=== PATIENT | male | born 1945 | race Two or more races ===

== ENCOUNTER 2018-05-13 19:30 | Inpatient (IN) | payer MEDICARE, OTHER ==
[~2018-05-13] VITALS: Ht 167.6 cm; Wt 71.7 kg
[2018-05-13] MEDS ORDERED: HYDROCODONE/APAP 5/325MG 1 EACH TABLET PO PRN (20:00)
[2018-05-13] MEDS ORDERED: MAGNESIUM HYDROXIDE 30 ML UDC PO PRN (20:00)
[2018-05-13] MEDS ORDERED: MORPHINE SULFATE INJ 2 MG/ML DISP.SYRIN IV PRN (20:00)
[2018-05-13] MEDS ORDERED: Z GUARD REMEDY 2 OZ OINT TP PRN (20:00)
[2018-05-13] MEDS ORDERED: MAG HYDROX/AL HYDROX/SIMETH 30 ML UDC PO PRN (20:00)
[2018-05-13] MEDS ORDERED: ZOLPIDEM TARTRATE 5 MG TABLET PO PRN (20:00)
[2018-05-13] MEDS ORDERED: ACETAMINOPHEN 325 MG TABLET PO PRN (20:00)
[2018-05-13 21:00] VITALS: BP 136/87
--- NOTE | 2018-05-13 21:15 | NUR ---
MS/SOUND MIXER ADMITTING NOTE Patient was a direct admission from [facility] for acute cholecystitis. Patient arrived to unit in stable condition, vital signs WNL, and initial physical assessment unremarkable except for right sided abdominal pain as expected. Patient was made comfortable in bed and oriented to the room and unit. Medical history was obtained from patient with his daughter assisting with translation. Patient is AAOx4, breathing on RA with no SOB, and no signs of acute distress. Patient was connected to IV fluids D5 1/2NS at 75ml/hr through the left AC. Patient was seen ambulating in the room and is steady on his feet. Bed is in the low/locked position, two side rails up, and call trujillo within reach. New orders have been acknowledged and patient needs currently met. Will continue to monitor.
[2018-05-13] MEDS: IV D5/0.45 NACL 1,000 ML IV PRN (21:58)
[2018-05-13 22:00] VITALS: BP 136/87
[2018-05-13 22:13] LABS: BASOPHILS % (AUTO) 0.1 % (0.0-2.0); HEMATOCRIT 48 % (39-51); HEMOGLOBIN 16.1 g/dL (13.5-17.5); LYMPHOCYTES % (AUTO) 5.6 % (20.0-44.0); MEAN CORPUSCULAR HGB CONC 34 g/dl (31.0-36.0); MEAN CORPUSCULAR VOLUME 89 fL (80-96); MONOCYTES # (AUTO) 1.7 /CMM (0.1-1.30); MONOCYTES % (AUTO) 9.6 % (2.0-12.0); NEUTROPHILS # (AUTO) 15.4 /CMM (1.8-8.9); NEUTROPHILS % (AUTO) 84.7 % (43.0-81.0); PLATELET COUNT (AUTO) 222 /CMM (150-450); RDW COEFFICIENT OF VARIATION 13.9 (11.5-15.0); RED BLOOD CELL COUNT(AUTO) 5.36 MIL/uL (4.5-6.0); WHITE BLOOD COUNT (AUTO) 18.2 K/uL (4.3-11.0)
[2018-05-13 22:27] LABS: ALBUMIN 3.4 g/dL (3.4-5.0); CALCIUM, SERUM 8.3 mg/dL (8.5-10.1); CREATININE 1.1 mg/dL (0.6-1.3); MAGNESIUM 1.6 mg/dL (1.8-2.4); POTASSIUM 3.8 mmol/L (3.5-5.1); TOTAL PROTEIN, SERUM 7.7 g/dL (6.4-8.2)
[2018-05-13 22:42] LABS: LYMPHOCYTES % (MANUAL) 1 % (16-48); MONOCYTES % (MANUAL) 11 % (0-11.0); NEUTROPHILS % (MANUAL) 88 (42-76)
[2018-05-14] VITALS: BP 139/83
[2018-05-14] MEDS ORDERED: PIPERACILLIN /TAZOBACTAM 2.25 G VIAL IV ONE ×2 (00:40→06:01)
[2018-05-14] MEDS: PIPERACILLIN /TAZOBACTAM 4.5 G in IV D5W 50 ML IV SCH ×5 (00:44→23:35)
[2018-05-14] MEDS: Magnesium 1GM/D5W 100ML PREMIX 100 ML IV SCH ×2 (02:26→03:23)
[2018-05-14 04:00] VITALS: BP 118/70
[2018-05-14 07:00] LABS: BASOPHILS % (AUTO) 0.1 % (0.0-2.0); HEMATOCRIT 49 % (39-51); HEMOGLOBIN 16.3 g/dL (13.5-17.5); LYMPHOCYTES # (AUTO) 1.1 /CMM (0.8-4.8); LYMPHOCYTES % (AUTO) 5.7 % (20.0-44.0); MEAN CORPUSCULAR HGB CONC 34 g/dl (31.0-36.0); MEAN CORPUSCULAR VOLUME 91 fL (80-96); MONOCYTES # (AUTO) 1.7 /CMM (0.1-1.30); MONOCYTES % (AUTO) 8.9 % (2.0-12.0); NEUTROPHILS # (AUTO) 16.5 /CMM (1.8-8.9); NEUTROPHILS % (AUTO) 85.3 % (43.0-81.0); PLATELET COUNT (AUTO) 231 /CMM (150-450); RDW COEFFICIENT OF VARIATION 13.9 (11.5-15.0); RED BLOOD CELL COUNT(AUTO) 5.35 MIL/uL (4.5-6.0); WHITE BLOOD COUNT (AUTO) 19.3 K/uL (4.3-11.0)
[2018-05-14 07:19] LABS: CALCIUM, SERUM 8.7 mg/dL (8.5-10.1); CREATININE 1.3 mg/dL (0.6-1.3); MAGNESIUM 2.7 mg/dL (1.8-2.4); PHOSPHORUS 2.9 mg/dL (2.5-4.9); POTASSIUM 3.7 mmol/L (3.5-5.1)
--- NOTE | 2018-05-14 07:20 | NUR ---
GAS UTILITY WORKER OPENING NOTES. PT RECEIVED A&0X3, TOLERATING ROOM AIR AND REPORTING SIGNIFICANT PAIN TO L R ABDOMEN. ABDOMEN IS VERY TENDER TO LITE TOUCH AND DISTENDED. PT DECLINE PRN ANALGESIA AT THIS TIME. PT WITH IVC A L AC g#20 INTACT AND OPERATIONAL. PT BED IN LOWEST LOCKED POSITION WITH HANDRAILSX2 AND CALL ERICKSON WITHIN REACH.
--- NOTE | 2018-05-14 07:46 | NUR ---
MS/TELE CLOSING NOTE Patient was seen in bed AAOx3, breathing on RA with no SOB, and no signs of acute distress. D5 1/2 NS is running at 75ml/hr through the left AC. Bed is in the low/locked position, two side rails up, call trujillo within reach. Patient remains in stable condition. Patient care has been endorsed to day shift RN.
[2018-05-14 08:00] VITALS: BP 130/79
[2018-05-14] MEDS ORDERED: GABA-532 PO (08:04)
[2018-05-14] MEDS ORDERED: ASPI-1169 PO (08:04)
[2018-05-14] MEDS ORDERED: TRAM50TA2 PO (08:04)
[2018-05-14] MEDS ORDERED: COLC0.6T67 PO (08:04)
[2018-05-14] MEDS ORDERED: AMLO5TAB7 PO (08:04)
[2018-05-14] MEDS ORDERED: ATOR20TA PO (08:04)
[2018-05-14] MEDS ORDERED: IOHEXOL-300 100 ML VIAL IV ONE (08:06)
[2018-05-14] MEDS ORDERED: IV NS 0.9% 500 ML IV ONE (08:07)
[2018-05-14] MEDS ORDERED: CT SWABBABLE VALVE TRANS SET 1 EA INFUS.SET MC ONE (08:07)
[2018-05-14] MEDS: ONDANSETRON HCL/PF 4 MG/2 ML VIAL IVP PRN ×2 (09:59→17:08)
[2018-05-14] MEDS: MORPHINE SULFATE INJ 4 MG/ML DISP.SYRIN IV PRN ×2 (10:12→17:07)
--- NOTE | 2018-05-14 10:40 | NUR ---
MSRN NOTES. PT CT ABDO RESULT IN REPORTED IN PERSON TO MD BARRIOS. Carina LUO ALSO NOTIFIED.
[2018-05-14] MEDS ORDERED: hydrALAZINE HCL 25 MG TABLET PO PRN (11:00)
[2018-05-14 16:00] VITALS: BP 129/76
[2018-05-14] MEDS: GABAPENTIN 100 MG CAPSULE PO SCH (16:55)
[2018-05-14] MEDS: IV D5/0.45 NACL 1,000 ML IV PRN (17:07)
[2018-05-14 17:13] VITALS: BP 130/76
--- NOTE | 2018-05-14 19:05 | NUR ---
RN INITIAL NOTES: RECEIVED PATIENT IN BED, WITH FAMILY AT BEDSIDE. ALERT, ORIENTED X3, TOLERATING ROOM AIR WITHOUT DISTRESS. NO REPORTS OF PAIN OR DISCOMFORT OF THIS TIME. PATIENT WITH PERIPHERAL IV INFUSING AT 75ML/HR. PATIENT'S BED IN LOWEST LOCKED POSITION WITH HANDRAILSX2 AND CALL ERICKSON WITHIN REACH. PATIENT STABLE ENDORSED BY THE MORNING SHIFT RN. WILL CONTINUE TO MONITOR.
--- NOTE | 2018-05-14 19:27 | NUR ---
MSRN CLOSING NOTES. PT REMAINS A&0X3 TOLERATING ROOM AIR WITHOUT DISTRESS AND REPORTS PAIN MANAGEMENT ADEQUATE AT THIS TIME. PT WITH IVC INTACT AND OPERATIONAL. FAMILY AT BEDSIDE. PT BED IN LOWEST LOCKED POSITION WITH HANDRAILSX2 AND CALL ERICKSON WHTIN REACH. ALL DAY NURSE DUTIES ATTENDED TO AND PT IS WITHOUT CONCERN OR COMPLAINT. ENDORSED TO NIGHT NURSE AT BEDSIDE FOR AYESHA.
[2018-05-14 20:00] VITALS: BP 124/70
[2018-05-15] MEDS: PIPERACILLIN /TAZOBACTAM 4.5 G in IV D5W 50 ML IV SCH ×3 (05:29→17:42)
[2018-05-15] MEDS: IV D5/0.45 NACL 1,000 ML IV PRN (06:11)
--- NOTE | 2018-05-15 06:51 | NUR ---
MS RN CLOSING NOTES: PATIENT IN BED, AWAKE, REMAINS ALERT ORIENTED X 4. TOLERATING ROOM AIR WITHOUT DISTRESS. NO REPORTS OF PAIN OR DISCOMFORT THROUGHOUT THE SHIFT. PATIENT WITH IVC INTACT, INFUSING AT 75ML/HR. CALL DRE RAMOS. BED IN LOWEST LOCKED POSITION WITH HANDRAILSX2. ALL NEEDS ATTENDED TO AND PT IS WITHOUT CONCERN OR COMPLAINT. WILL ENDORSE TO AM SHIFT NURSE FOR AYESHA.
[2018-05-15 07:20] LABS: BASOPHILS % (AUTO) 0.2 % (0.0-2.0); EOSINOPHILS % (AUTO) 0.6 % (0.0-6.0); HEMATOCRIT 44 % (39-51); HEMOGLOBIN 14.5 g/dL (13.5-17.5); LYMPHOCYTES # (AUTO) 0.9 /CMM (0.8-4.8); LYMPHOCYTES % (AUTO) 6.6 % (20.0-44.0); MEAN CORPUSCULAR HGB CONC 33 g/dl (31.0-36.0); MEAN CORPUSCULAR VOLUME 90 fL (80-96); MONOCYTES # (AUTO) 1.4 /CMM (0.1-1.30); MONOCYTES % (AUTO) 10.1 % (2.0-12.0); NEUTROPHILS # (AUTO) 11.6 /CMM (1.8-8.9); NEUTROPHILS % (AUTO) 82.5 % (43.0-81.0); PLATELET COUNT (AUTO) 202 /CMM (150-450); RDW COEFFICIENT OF VARIATION 14.3 (11.5-15.0); RED BLOOD CELL COUNT(AUTO) 4.83 MIL/uL (4.5-6.0); WHITE BLOOD COUNT (AUTO) 14.1 K/uL (4.3-11.0)
[2018-05-15 07:24] LABS: CALCIUM, SERUM 8.3 mg/dL (8.5-10.1); CREATININE 1.2 mg/dL (0.6-1.3); POTASSIUM 3.9 mmol/L (3.5-5.1)
[2018-05-15 07:29] LABS: ALBUMIN 2.5 g/dL (3.4-5.0); BILIRUBIN,DIRECT 0.4 mg/dL (0.0-0.2); BILIRUBIN,TOTAL 1.6 mg/dL (0.2-1.0); MAGNESIUM 2.3 mg/dL (1.8-2.4); PHOSPHORUS 2.4 mg/dL (2.5-4.9); TOTAL PROTEIN, SERUM 6.8 g/dL (6.4-8.2)
--- NOTE | 2018-05-15 07:35 | NUR ---
MS RN OPENING NOTES: PATIENT IN BED, AWAKE, REMAINS ALERT ORIENTED X 4. TOLERATING ROOM AIR WITHOUT DISTRESS. NO REPORTS OF PAIN OR DISCOMFORT THROUGHOUT THE SHIFT. PATIENT WITH IVC INTACT, INFUSING AT 75ML/HR. CALL LIGHT WHTIN REACH. BED IN LOWEST LOCKED POSITION WITH HANDRAILSX2. ALL NEEDS ATTENDED TO AND PT IS WITHOUT CONCERN OR COMPLAINT. WILL CONTINUE TO MONITOR
[2018-05-15 08:00] VITALS: BP 127/77
[2018-05-15] MEDS: ASPIRIN 81 MG TAB.CHEW PO SCH (08:48)
[2018-05-15] MEDS: TRAMADOL HCL 50 MG TABLET PO PRN ×2 (08:48→21:42)
[2018-05-15] MEDS: GABAPENTIN 100 MG CAPSULE PO SCH ×2 (08:57→17:00)
[2018-05-15] MEDS: AMLODIPINE BESYLATE 5 MG TABLET PO SCH (08:57)
[2018-05-15] MEDS ORDERED: K PHOS NEUTRAL 250 MG TABLET PO ONE (14:00)
[2018-05-15 16:00] VITALS: BP 135/74
--- NOTE | 2018-05-15 19:30 | NUR ---
MS/RN OPENING NOTES PT AWAKE, LAYING IN BED. ON ROOM AIR, BREATHING EVEN AND UNLABORED. NO SOB, ABDOMINAL PAIN NOTED TO BE 3/10, DOES NOT WANT PAIN MEDICATION AT THIS TIME. IV TO LAC PATENT AND INTACT RUNNING IVF ORDERED. BED REMAINS IN LOW/LOCKED POSITION WITH CALL LIGHT IN REACH. SIDE RAILS UPX2. WILL CONTINUE TO MONITOR
--- NOTE | 2018-05-15 19:42 | NUR ---
MS RN CLOSING NOTES: PATIENT IN BED, AWAKE, REMAINS ALERT ORIENTED X 4. TOLERATING ROOM AIR WITHOUT DISTRESS. NO REPORTS OF PAIN OR DISCOMFORT THROUGHOUT THE SHIFT. PATIENT WITH IVC INTACT, INFUSING AT 75ML/HR. CALL LIGHT WHTIN REACH. BED IN LOWEST LOCKED POSITION WITH HANDRAILSX2. ALL NEEDS ATTENDED TO AND PT IS WITHOUT CONCERN OR COMPLAINT. ENDORSED TO NEXT SHIFT FOR CONTINUITY OF CARE
[2018-05-15 20:00] VITALS: BP 122/71
[2018-05-15 20:39] VITALS: BP 122/71
[2018-05-15] MEDS ORDERED: ATORVASTATIN 10 MG TABLET PO SCH (22:00)
[2018-05-16] MEDS: PIPERACILLIN /TAZOBACTAM 4.5 G in IV D5W 50 ML IV SCH ×3 (00:12→11:14)
[2018-05-16] MEDS: IV D5/0.45 NACL 1,000 ML IV PRN (00:12)
--- NOTE | 2018-05-16 07:12 | NUR ---
MS/RN CLOSING NOTES PT AWAKE, SITTING UP IN BED. REMAINS ON ROOM AIR, BREATHING EVEN AND UNLABORED. NO SOB OR PAIN NOTED AT THIS TIME. IV TO LAC PATENT AND INTACT RUNNING IVF ORDERED. NO SIGNIFICANT CHANGES OVERNIGHT. SLEPT WELL DURING SHIFT. ALL NEEDS MET AND ATTENDED. KEPT COMFORTABLE. BED REMAINS IN LOW/LOCKED POSITION WITH CALL LIGHT IN REACH. SIDE RAILS UPX2. ENDORSED TO DAY SHIFT RN AYESHA.
--- NOTE | 2018-05-16 07:15 | NUR ---
MS RN OPENING NOTES: PATIENT IN BED, AWAKE, REMAINS ALERT ORIENTED X 4. TOLERATING ROOM AIR WITHOUT DISTRESS. NO REPORTS OF PAIN OR DISCOMFORT THROUGHOUT THE SHIFT. PATIENT WITH IVC INTACT, INFUSING AT 75ML/HR. CALL LIGHT WITHIN REACH. BED IN LOWEST LOCKED POSITION WITH HANDRAILSX2. ALL NEEDS ATTENDED TO AND PT IS WITHOUT CONCERN OR COMPLAINT. WILL CONTINUE TO MONITOR
[2018-05-16 08:00] VITALS: BP 147/81
[2018-05-16 08:30] VITALS: BP_SYST 147
[2018-05-16] MEDS: ASPIRIN 81 MG TAB.CHEW PO SCH (08:30)
[2018-05-16] MEDS: AMLODIPINE BESYLATE 5 MG TABLET PO SCH (08:30)
[2018-05-16] MEDS: GABAPENTIN 100 MG CAPSULE PO SCH (08:31)
[2018-05-16 11:11] LABS: BASOPHILS % (AUTO) 0.1 % (0.0-2.0); EOSINOPHILS % (AUTO) 2.5 % (0.0-6.0); HEMATOCRIT 41 % (39-51); HEMOGLOBIN 13.7 g/dL (13.5-17.5); LYMPHOCYTES % (AUTO) 11.6 % (20.0-44.0); MEAN CORPUSCULAR HGB CONC 33 g/dl (31.0-36.0); MEAN CORPUSCULAR VOLUME 91 fL (80-96); MONOCYTES # (AUTO) 0.8 /CMM (0.1-1.30); MONOCYTES % (AUTO) 9.5 % (2.0-12.0); NEUTROPHILS # (AUTO) 6.6 /CMM (1.8-8.9); NEUTROPHILS % (AUTO) 76.3 % (43.0-81.0); PLATELET COUNT (AUTO) 234 /CMM (150-450); RDW COEFFICIENT OF VARIATION 14.2 (11.5-15.0); RED BLOOD CELL COUNT(AUTO) 4.51 MIL/uL (4.5-6.0); WHITE BLOOD COUNT (AUTO) 8.6 K/uL (4.3-11.0)
[2018-05-16 11:25] LABS: ALBUMIN 2.4 g/dL (3.4-5.0); BILIRUBIN,DIRECT 0.2 mg/dL (0.0-0.2); TOTAL PROTEIN, SERUM 6.8 g/dL (6.4-8.2)
--- NOTE | 2018-05-16 13:01 | NUR ---
RN NOTES SEEN AND EXAMINED BY DNP, PER DNP PT MAY GO AGAINST MEDICAL ADVICE DNP WILL PRESCRIPTION PT AWARE, NEPALI TRANSLATION PROVIDED, WILL ASSIST WITH DISCHARGE AGAINST MEDICAL ADVICE
--- NOTE | 2018-05-16 13:30 | NUR ---
RN NOTES/ AMA PT SEEN AND EXAMINED BY DNP, PER DNP PT MAY GO AGAINST MEDICAL ADVICE PT REFUSING SURGICAL PROCEDURE RECOMMENDID AT THIS TIME, DNP WILL GIVE PRESCRIPTION PT AWARE, MAURITIAN TRANSLATION PROVIDED, PT DISCHARGED AGAINST MEDICAL ADVICE WITH STABLE VITAL SIGNS NO ACUTE DISTRESS, DENIES ANY PAIN OR DISCOMFORT AT THIS TIME. IV ACCESS AND ID BAND REMOVED WITH NO ASE NOTED. ALL APPROPRIATE PAPERWORK COMPLETED AND SIGNED, ALL BELONGINGS ACCOUNTED FOR, ACCOMPANIED TO LOBBY BY RN AND VS STABLE UPON DISCHARGE
== END 2018-05-16 13:57 | disposition left against medical advice (07) | DRG 445 ==
LOC: MED 20:46 → TELE 21:05 → MED 05-14 08:48
PROVIDERS: ADMIT Internal Medicine; ATTEND Internal Medicine
DX: K80.00 Calculus of gallbladder with acute cholecystitis without obstruction (principal); E44.1 Mild protein-calorie malnutrition; K82.1 Hydrops of gallbladder; N40.0 Benign prostatic hyperplasia without lower urinary tract symptoms; M81.0 Age-related osteoporosis without current pathological fracture; I10 Essential (primary) hypertension; K42.9 Umbilical hernia without obstruction or gangrene; E78.5 Hyperlipidemia, unspecified; D72.829 Elevated white blood cell count, unspecified; I70.90 Unspecified atherosclerosis; Z68.25 Body mass index [BMI] 25.0-25.9, adult; M10.9 Gout, unspecified; E80.6 Other disorders of bilirubin metabolism; E83.51 Hypocalcemia; R73.9 Hyperglycemia, unspecified
CPT/HCPCS: 36415; 71046; 74170-TC; 74178; 80048-TC; 80053-TC; 80076-TC; 83735-TC; 84100-TC; 85025-TC; 87081-TC; J2270; J2405; J2543; J3475; J3490; J7040; J7060; Q9967; Z7610